=== PATIENT | female | born 1970 | race Caucasian/White ===

== ENCOUNTER 2022-01-23 14:23 | Outpatient (REF) | payer MEDICAID, SELFPAY ==
--- NOTE | 2022-01-23 14:00 | PAPFT_PTH ---
PATIENT: Ashley Coleman LOC: [facility] U#:[id number] AGE/SX: 51/F ROOM: RE01/23/[address]: Stefania Brennan : 1970 BED: DIS: 01/23/2022 SPEC #: [id number] RECD: 01/23/22 18:49 STATUS: SUNDEEP REJane #: [id number] CANDACE: 01/23/22 14:[address]: Stefania Brennan DEPT: [facility] Cytology RECD BY: Carol Perez ENTERED: 01/23/22 18:49 SP TYPE: PAPFT OT DR: Unknown,Unknown Tissues: 1 - CX/ENDOCX FOR PAP SMEARS Procedures: PAP THIN PREP/UVM Screening HPV DNA PROBE Comments: [id number]
== END 2022-01-23 14:24 | disposition home or self-care (01) ==
LOC: LBN 14:23
PROVIDERS: Visit Provider Obstetrics & Gynecology Gynecology
DX: Z12.4 Encounter for screening for malignant neoplasm of cervix (principal); Z11.51 Encounter for screening for human papillomavirus (HPV)
CPT/HCPCS: 88142; 87624

== ENCOUNTER 2022-07-17 10:15 | Outpatient (REF) | payer MEDICAID, SELFPAY ==
[2022-07-17 12:16] LABS: Abs Immature Grans 0.01 10^3/uL (0.0-0.06); Absolute Basophil Count 0.02 10^3/uL (0.0-0.2); Absolute Eosinophil Count 0.04 10^3/uL (0.0-0.7); Absolute Lymphocyte Count 1.83 10^3/uL (1.2-3.4); Absolute Monocyte Count 0.64 10^3/uL (0.1-0.8); Absolute Neutrophil Count 2.76 10^3/uL (1.2-6.7); Basophils % 0.4; Eosinophils % 0.8; HCT 42.1 % (36.0-46.0); HGB 14.1 g/dL (11.2-15.7); Immature Grans % 0.2; Lymphocytes % 34.5; MCH 30.3 pg (27.0-33.0); MCHC 33.5 % (32.0-36.0); MCV 90 fL (80-95); MPV 10.9 fL (8.0-11.0); Monocytes % 12.1; Platelet Count 207 10^3/uL (130-400); RBC 4.66 10^6/uL (3.93-5.22); RDW 11.5 % (11.7-14.6)
[2022-07-17 12:24] LABS: Iron 80 ug/dL (50-170); Total Iron Binding Capacity 308 ug/dL (250-450); Transferrin Sat 26 % (15-50)
[2022-07-17 12:51] LABS: ALT 18 U/L (14-59); AST 20 U/L (15-37); Alkaline Phosphatase 85 U/L (46-116); Anion Gap 7.2 mmol/L (3-11); BUN 22 mg/dL (7-18); Bilirubin, Total 0.3 mg/dL (0.2-1.0); CO2 28.8 mmol/L (21.0-32.0); CREATININE 0.9 mg/dL (0.55-1.02); Calcium 9.8 mg/dL (8.5-10.1); Chloride 105 mmol/L (98-107); Estimated GFR 78.37 (mL/min/1.73m2); Ferritin 84 ng/mL (8-252); Folate 14.9 ng/mL (8.6-20.0); Glucose 87 mg/dL (74-106); Potassium 3.5 mmol/L (3.5-5.1); Sodium 141 mmol/L (136-145); TSH (W/Ref FT4) 0.99 uIU/mL (0.36-3.74); Vitamin B12 436 pg/mL (193-986)
== END 2022-07-17 10:16 | disposition home or self-care (01) ==
LOC: LBN 10:15
PROVIDERS: PCP Neuromusculoskeletal Medicine & OMM; Visit Provider Surgery
DX: E03.9 Hypothyroidism, unspecified (principal); I95.9 Hypotension, unspecified; Z12.12 Encounter for screening for malignant neoplasm of rectum
CPT/HCPCS: 80053; 82607; 82728; 82746; 83540; 83550; 84443; 85025

== ENCOUNTER 2022-08-03 08:15 | Day surgery (SDC) | payer MEDICAID, SELFPAY ==
--- NOTE | 2022-08-02 19:57 | W.PM.DSUDISC ---
Date of service: 08/03/22 Time of Service: 09:29 Discharge Plan Disposition Patient Disposition: Home Condition: Good Condition: Good Discharge Details Reason For Visit: Screening colonoscopy Attending Provider: Ernie Pena Primary Care Provider: Vicente Jean Home Meds and New Rx's Prescriptions: Continued thyroid (pork) [[place] Thyroid] 60 mg tablet 60 mg PO DAILY Discontinued polyethylene glycol 3350 17 gram/dose powder 238 g PO ONCE Qty: 238 0RF Rx Instructions: take per colonoscopy instructions bisacodyl [Dulcolax (bisacodyl)] 5 mg tablet,delayed release (DR/EC) 5 mg PO ONCE Qty: 4 0RF Rx Instructions: take per colonoscopy instructions Discharge Instructions Additional Instructions: Ashley, we were able to complete your colonoscopy today without any difficulty. It was totally normal. You should have another screening colonoscopy in 10 years to reduce your chances of from colon cancer 1. If tolerated, consume a soft, low fiber diet for 1-2 days. 2. Do not drive, drink alcohol, operate machinery, make critical decisions, or do activities that require coordination or balance for 24 hours. 3. Because air was put into your colon during the procedure, expelling air from your rectum (passing gas or farting) is normal. 4. You may not have a bowel movement for 1-3 days because of the colonoscopy prep. This is normal. 5. Go directly to the emergency room if you notice any of the following: Develop chills (warm to touch), or if you have a thermometer and your temperature is above 101 Difficulty breathing or difficultly swallowing Persistent vomiting Severe abdominal pain, other than gas cramps Severe chest pain Black, tarry stools Any bleeding ? exceeding one tablespoon 6. Call your physician if the site where your intravenous was started becomes red, swollen, painful, and warm to touch. 7. Your physician has reviewed your pre-procedure medications. Please continue to take those medications as previously ordered. You will be given specific information/education regarding any changes to your medications before leaving. Activity:: Activity as Tolerated Diet:: As Tolerated Discharge Orders Discharge Orders: Discharge Order (Routine); Ordered 08/02/22 Ordered By: Ernie Pena DS: Diagnosis Discharge Diagnosis (1) Screening for rectal cancer: Status: Acute Asessment and Plan: Normal colonoscopy. You should have your next screening colonoscopy in 10 years
--- NOTE | 2022-08-02 19:59 | W.COLOREPORT ---
Date of service: 08/03/22 Time of Service: 09: Colonoscopy Report Date of procedure: 08/03/22 Pre-op diagnosis general: Screening colonoscopy Post-op diagnosis procedure note: same Procedure: Colonoscopy Surgeon: Ernie Pena Anesthesia Type: General:No Airway Estimated blood loss (mL): 0 Pathology: none sent Complications: None Disposition: same day Indications: Ashley is 51 years old and she is here for her first screening colonoscopy Prep: Miralax/Dulcolax Procedure Start Time: :06 Procedure End Time: : Retraction Time: 12 Findings: Normal colonoscopy Procedure Description: After the induction of monitored anesthetic care, and with the patient in left lateral decubitus position, I began by performing an external anorectal exam.? Perineum and skin were normal, as was the anal verge.? There was no evidence of external hemorrhoids.? Next, I performed a digital rectal exam.? I did not appreciate any abnormal findings.? Next, I advanced a colonoscope into the rectal vault.? I performed retroflexion.? This was normal.? Using insufflation, I then advanced the colonoscope beyond the rectal folds and into the sigmoid colon before advancing towards the cecum.? The quality of the prep was excellent.? The scope was noted to be in the cecum by identification of the ileocecal valve and appendiceal orifice.? I then began withdrawing the colonoscope using repeated irrigation as necessary for full evaluation of the colonic mucosa. ?Once the scope was withdrawn to the level of the rectum, great care was taken to examine portions of the rectal folds.? Finally, the scope was withdrawn and the patient was brought to the same-day surgery recovery unit as the anesthetic wore off. ?The findings and instructions were shared with the patient prior to discharge.
[2022-08-03 08:32] VITALS: BP 112/80; PULSE 112; RESP 16; TEMP 36.5; O2SAT 97
--- NOTE | 2022-08-03 08:48 | ANES.PREOP_ITS ---
General Info Date of Service Date Performed: 08/03/22 Height: 5 ft 8 in Weight: 71.6 kg Body Mass Index (BMI): 24.0 Surgical Procedure: Operation Date: 08/03/22 09:50 Proposed Procedure Side Surgeon p Colonoscopy possible Polypectomy Ernie Pena MD Meds Allergies and Home Medications Allergies Allergy/AdvReac Type Severity Reaction Status Date / Time codeine AdvReac Intermediate Headache Verified 08/03/22 08:32 Home Medication Medication Instructions Recorded thyroid (pork) 60 mg tablet 60 mg PO DAILY 01/23/22 ([place] Thyroid) Current Visit Medications: Current Medications Generic Name Dose Route Start Last Admin Trade Name Freq PRN Reason Stop Dose Admin Hyoscyamine Sulfate 0.125 mg 08/02/22 20:02 Hyoscyamine 0.125 Mg Sl/Oral/Chew SL DIRECTED PRN Ringer's Solution 1,000 mls @ 80 mls/hr 08/03/22 06:00 IV 09/01/22 23:59 [facility] IV Miscellaneous Supplies 1 each 08/03/22 06:00 Iv Access IV 09/01/22 23:59 DIRECTED SALVATORE Ondansetron HCl 4 mg 08/02/22 20:02 Ondansetron 4 Mg/2 Ml Vial IVP Q4H PRN PRN Nausea / Vomiting Sodium Chloride 0 ml 08/03/22 06:00 Normal Saline Flush 10 Ml Syr IV 09/01/22 23:59 PRN PRN Sodium Chloride 0 ml 08/03/22 06:00 Normal Saline 10 Ml Vial IJ 09/01/22 23:59 DIRECTED PRN Sterile Water 0 ml 08/03/22 06:00 Water,Injection,Sterile 10 Ml Vial IJ 09/01/22 23:59 DIRECTED PRN PFSH Active Problems Active Problems: Problem Status Onset Code Hypothyroidism E03.9 Screening for rectal cancer Z12.12 Low blood pressure, not hypotension R03.1 Medical History Medical History Contraception 's vasectomy Hx of abnormal cervical Pap smear (~1996) 2001 s/p LEEP. Nl paps since. Migraine with aura infrequent. Surgical History Surgical History (Updated 08/03/22 @ 08:40 by Dhruv Brower) Cervical Procedure LEEP - ? CIN2. Nl paps since Reduction mammoplasty Patient denies having a breast reduction. Tooth extraction Tobacco Smoking/Tobacco Use Status: Never Alcohol Alcohol Intake: current Alcohol intake frequency: a few times a month Details: rarely Substance Use Substance use: Never Substance use type: does not use Prental History History 4 Para 3 Hx # Term Pregnancies 3 Multiple births Hx # Pregnancies Ectopic pregnancies AB induced Hx Number of Living Children AB spontaneous Vital Signs and Lab Results Vital Signs Most Recent Vital Signs in EMR: Most Recent Vital Signs Temp Pulse Resp BP Pulse Ox 36.5 C 112 H 16 112/80 97 08/03/22 08:32 08/03/22 08:32 08/03/22 08:32 08/03/22 08:32 08/03/22 08:32 Point of Care Results Point of Care Results: POC- Test(urine) Negative 08/03/22 08:29 Lab Results Blood Type / Crossmatch: No Data to Display Complete Blood Count: White Blood Count 5.30 10^3/uL (4.4-10.8) 07/17/22 10:10 Red Blood Count 4.66 10^6/uL (3.93-5.22) 07/17/22 10:10 Hemoglobin 14.1 g/dL (11.2-15.7) 07/17/22 10:10 Hematocrit 42.1 % (36.0-46.0) 07/17/22 10:10 Platelet Count 207 10^3/uL (130-400) 07/17/22 10:10 Complete Metabolic Panel: Sodium 141 mmol/L (136-145) 07/17/22 10:10 Potassium 3.5 mmol/L (3.5-5.1) 07/17/22 10:10 Chloride 105 mmol/L (98-107) 07/17/22 10:10 Carbon Dioxide 28.8 mmol/L (21.0-32.0) 07/17/22 10:10 BUN 22 mg/dL (7-18) H 07/17/22 10:10 Creatinine 0.9 mg/dL (0.55-1.02) 07/17/22 10:10 Est GFR (CKD-EPI 2020) 78.37 (mL/min/1.73m2) 07/17/22 10:10 Calcium 9.8 mg/dL (8.5-10.1) 07/17/22 10:10 Albumin 4.0 g/dL (3.4-5.0) 07/17/22 10:10 Glucose 87 mg/dL (74-106) 07/17/22 10:10 Liver Function Panel: Alanine Aminotransferase (ALT/SGPT) 18 U/L (14-59) 07/17/22 10: 10 Aspartate Amino Transf (AST/SGOT) 20 U/L (15-37) 07/17/22 10:10 Coagulation Panel: No Data to Display Cardiac Panel: No Data to Display Arterial Blood Gas: No Data to Display Venous Blood Gas: No Data to Display Pancreas Panel: No Data to Display Thyroid Panel: Thyroid Stimulating Hormone (TSH) 0.99 uIU/mL (0.36-3.74) 07/17 10:10 Infectious Disease: No Data to Display Blood Cultures: No Data to Display Toxicology Panel: No Data to Display Panel: No Data to Display Anesthesia Assessment and Plan Anesthesia History Personal History: No History of Anesthesia Complications Family History: No Family History of Anesthesia Complications Exercise Tolerance Exercise Tolerance: Metabolic Equivalents>4 Pertinent Negatives Pertinent Negatives: No Symptoms of GERD, No Major Cardiovascular Symptoms or Complaints and No Major Pulmonary Symptoms or Complaints Cardiac & Pulmonary Exam Cardiac Exam: Normal S1/S2 Heart Sounds Pulmonary Exam: Clear Bilateral Breath Sounds Implantable Cardiac Device Does patient have a Pacemaker or an ICD?: No Airway Exam Known Difficult Airway: No Mallampati Class: 2 Mouth Opening: Normal (> 3cm) Thyromental Distance: Greater than 3 cm Neck Range of Motion: Full ROM Neck Circumference: Normal Teeth Condition: Normal Dentition Airway Comments: TMJ, Snores nightly ASA Classification ASA Score: ASA 2 Emergency Case?: No NPO Status NPO Status: NPO Clears >2 hours, Solids >8 hours Status Status: Negative HCG Anesthesia Plan Resuscitation Status: Full Code Anesthesia Technique: General Anesthesia Airway Planned: Natural Airway Monitors Used: Standard Monitors Preoperative Comments:: Requests to start with measurement specialist sedation and transition to GA/natural airway if necessary Repeat heart rate 90bpm.
[2022-08-03 08:50] VITALS: BMI 24.0
[2022-08-03] MEDS: Lactated Ringers 1,000 ML 80 ML IV (08:52)
[2022-08-03 09:32] VITALS: BP 107/78; PULSE 85; RESP 18; TEMP 36.3; O2SAT 95
--- NOTE | 2022-08-03 09:51 | W.ANESPOSTOP ---
Postoperative Evaluation Date, Time and Location Date Performed: 08/03/22 Time Performed: 09:51 Patient Location: Day Surgery Unit Vital Signs Most Recent Imported Vital Signs: Most Recent Vital Signs Temp Pulse Resp BP Pulse Ox 36.3 C L 85 18 107/78 95 08/03/22 09:32 08/03/22 09:32 08/03/22 09:32 08/03/22 09:32 08/03/22 09:32 Pain Score Most Recent Pain Score: Most Recent Pain Score Pain Level 0 08/03/22 09:32 Assessment Mental Status: Awake (Alert & Oriented to Patient Baseline) Airway and Respiratory Function: Patent airway with normal (patient baseline) respiratory exam Cardiovascular Function: Hemodynamically Stable Hydration Status: Adequately Hydrated Nausea & Vomiting: No Nausea or Vomiting Pain: Pt. Denies Any Pain Peripheral Nerve Block: Patient did not receive a nerve block
[2022-08-03 09:54] VITALS: BP 109/75; PULSE 82; RESP 18; TEMP 36.5; O2SAT 98
== END 2022-08-03 10:09 | disposition home or self-care (01) ==
PROVIDERS: PCP Neuromusculoskeletal Medicine & OMM; Visit Provider Surgery
PROC: 0DJD8ZZ Inspection of Lower Intestinal Tract, Via Natural or Artificial Opening Endoscopic (ICD-10-PCS; CPT 45378; principal; 2022-08-03 09:45)
DX: Z12.11 Encounter for screening for malignant neoplasm of colon (principal)
CPT/HCPCS: 45378